=== PATIENT | female | born 1955 | race African-American/Black ===

== ENCOUNTER 2022-05-26 16:48 | Observation (INO) | payer MEDICARE, BC, OTHER, SELFPAY ==
[2022-05-26] VITALS (17 sets, daily range): BP systolic 121–197; BP diastolic 39–117; PULSE 64–81; RESP 14–22; TEMP 36.4–36.6; O2SAT 97–100; BMI 28.8
--- NOTE | ~2022-05-26 | CT_ITS ---
EXAMINATION: CT brain wo con DATE: 05/26/2022 21:14 INDICATION: fall 05/25 evening, pt denies hitting head . TECHNIQUE: Computed tomography (CT) of the head was performed without intravenous contrast. The mA wa s adjusted according to patient size. Iterative reconstruction technique was employed. The dose-lengt h product was 605.33 mGy-cm. COMPARISON: None. FINDINGS: No acute intracranial hemorrhage or extra-axial fluid collection. No hydrocephalus, mass, or herniation. No acute ischemic infarct. Unremarkable dural venous sinus attenuation. No acute osseous abnormality. Small osteoma or calcified meningioma projecting off the inner table of the left frontal bone. The aerated spaces are clear. Mild atrophy and chronic white matter change. Atherosclerotic intracranial calcification. Bilateral l ens replacements. IMPRESSION: No acute intracranial process. Reviewed, dictated and finalized at location K. ENGINEER
[2022-05-26] MEDS: GLUCOSE ORAL GEL 15 GM OF GLUCSE IN 37.5 GM TUBE (17:11)
--- NOTE | 2022-05-26 17:14 | PC.NURSE ---
During initial assessment the patient could only respond to questions with the remark 22
--- NOTE | 2022-05-26 17:34 | ECG_ITS ---
Measurements Intervals [place] Rate: 65 P: 102 VT: 141 QRS: 38 QRSD: 82 T: 31 QT: 465 QTc: 485 Interpretive Statements SINUS RHYTHM NONSPECIFIC ST & T-WAVE ABNORMALITY PROLONGED QT INTERVAL NO PREVIOUS ECG AVAILABLE FOR COMPARISON Electronically Signed On 05-27-2022 8:02:56 GLASS ROLLING MACHINE OPERATOR by Grzegorz Billings M.D.
[2022-05-26] MEDS: DEXTROSE 50% 25 GM/50 ML SYRINGE IV PUSH ×2 (17:52→22:51)
[2022-05-26] MEDS: SODIUM CHLORIDE 0.9% IV 1,000 ML 999 ML IV CONT (18:08)
--- NOTE | 2022-05-26 18:12 | ED.GENADULT ---
HPI - General Adult General Chief complaint: Weakness Stated complaint: weakness Time Seen by Provider: 05/26/22 16:56 History of Present Illness HPI narrative: 67-year-old female presenting to the emergency department for evaluation of altered mental status, lethargy and hypoglycemia. Family states that over the last 2 days patient has had decreased p.o. intake and increased lethargy. Family states patient did have a fall yesterday with no head injury but the patient was increasingly weak and they had difficulty getting her off of the floor. They state today patient continued to have worsening mental status. EMS was called and upon arrival to the scene patient was found to have a blood sugar of 44 but IV access was not established. They did treat the patient with glucagon. Related Data Home Medications Medication Instructions Recorded Confirmed aspirin 81 mg chewable tablet 05/26/22 atenolol 100 mg tablet mg 05/26/22 azelastine 137 mcg (0.1 %) nasal intranasal 05/26/22 spray aerosol buspirone 5 mg tablet mg 05/26/22 calcium citrate mg 05/26/22 docusate sodium 100 mg capsule mg PO 05/26/22 duloxetine 60 mg capsule,delayed mg PO 05/26/22 release ergocalciferol (vitamin D2) 1,250 05/26/22 mcg (50,000 unit) capsule ferrous sulfate 325 mg (65 mg mg 05/26/22 iron) tablet fluticasone propionate 50 intranasal 05/26/22 mcg/actuation nasal spray,suspension gabapentin 400 mg capsule mg 05/26/22 insulin aspar prot-insulin aspart subcut 05/26/22 100 unit/mL (70-30) subcutaneous pen (Novolog Mix 70-30FlexPen U-100) losartan 50 mg tablet mg 05/26/22 metformin 500 mg tablet,extended mg PO 05/26/22 release 24 hr montelukast 10 mg tablet mg 05/26/22 oxycodone-acetaminophen 10 mg-325 tablet 05/26/22 mg tablet pantoprazole 40 mg tablet,delayed mg PO 05/26/22 release potassium chloride 20 mEq meq PO 05/26/22 tablet,extended release sitagliptin phosphate 100 mg mg 05/26/22 tablet (Januvia) trazodone 100 mg tablet mg 05/26/22 vancomycin 125 mg capsule mg 05/26/22 Allergies Allergy/AdvReac Type Severity Reaction Status Date / Time Penicillins Allergy Hives Verified 05/26/22 19:30 Course Course Emergency Course: 67-year-old diabetic female presenting to the emergency department for altered mental status and hypoglycemia. IV access was not established by EMS. Upon arrival to the emergency department IV access was still difficult to initiate. For this reason an emergent central line in the right femoral was established. Patient and family were updated on the reason for getting the emergency central line. Once central line access was established patient was treated with fluids and IV dextrose. Patient's blood sugars did increase and then stabilized. Differential diagnosis for patient's symptoms did include primary hyperglycemia, underlying bacterial or viral infection. Patient did have a leukocytosis of 19.0. UA was concerning for urinary tract infection. Urine culture is pending. Patient was started on Levaquin due to other underlying medication allergies. Patient was negative for COVID RSV and influenza. Case was discussed with the hospitalist and patient was admitted to the IMU. Patient's vital signs were stable but due to her having the central line for IV access hospitalist felt that be more appropriate to have the patient admitted to the IMU. Patient and family were updated on the results of the work-up, and plan for admission. All question concerns were addressed. Cardio to the floor patient also had a negative head CT. Patient was recently diagnosed with C. difficile and is still undergoing treatment, patient did have diarrhea stool while in the emergency department Vital Signs Vital signs: Vital Signs Temperature 97.8 F 05/26/22 16:55 Pulse Rate 64 05/26/22 16:55 Respiratory Rate 16 05/26/22 16:55 Blood Pressure 197/117 H 05/26/22 16:55 Pulse O
[2022-05-26 18:22] LABS: Glucose Point of Care 241 mg/dl (65-105)
[2022-05-26 18:22] LABS: Glucose Point of Care 62 mg/dl (65-105)
[2022-05-26 18:22] LABS: Glucose Point of Care 74 mg/dl (65-105)
[2022-05-26 18:22] LABS: Glucose Point of Care 44 mg/dl (65-105)
--- NOTE | 2022-05-26 18:25 | PC.NURSE ---
Patient was given D50 and a blood glucose was reobtained of 241. Dr. Shah notified. Patient started to state she wanted to go home, she wanted to be left alone, and started to try to get out of bed.
[2022-05-26 18:26] LABS: Basophils Absolute Auto 0.1 K/mm3 (0.0-0.1); Basophils Percent Auto 0.3 % (0.2-1.2); Eosinophils Percent Auto 0.1 % (0-4.4); Hematocrit 34.9 % (37.0-47.0); Hemoglobin 11.3 g/dL (12.0-15.0); Immature Granulocyte Absolute 0.11 K/mm3 (0.00-0.031); Immature Granulocyte Percent A 0.6 % (0-0.5); Mean Corpuscular HGB Conc 32.4 g/dl (32-36); Mean Corpuscular Hemoglobin 28.2 pg (26-34); Mean Platelet Volume 10.3 fl (7.4-10.4); Monocytes Absolute Auto 0.6 K/mm3 (0.1-0.6); Monocytes Percent Auto 3.2 % (2.6-8.5); Neutrophils Absolute Auto 14.4 K/mm3 (1.3-6.7); Neutrophils Percent Auto 75.8 % (45.5-73.1); Platelet Count Result 236 k/mm3 (150-375); Red Blood Count 4.01 M/mm3 (4.2-5.4); Red Cell Distribution Width 15.4 % (11.5-14.5)
[2022-05-26 18:33] LABS: Alanine Aminotransferase 14 U/L (6-35); Albumin Level 2.9 g/dL (3.5-5.1); Alkaline Phosphatase 85 U/L (38-126); Anion Gap 0 mmol/L (8-16); Aspartate Amino Transferase 26 U/L (14-36); Bilirubin,Total 0.4 mg/dL (0.2-1.3); Blood Urea Nitrogen 8 mg/dL (7-17); Calcium 8.3 mg/dL (8.4-10.2); Carbon Dioxide 29 mmol/L (22-30); Chloride 100 mmol/L (98-107); Estimated Glomerular Filt Rate > 60; Glucose 308 mg/dL (65-110); INR 1.1; Lactic Acid Reflex 1.2 mmol/L (0.7-2.0); Potassium 3.5 mmol/L (3.4-5.0); Prothrombin Time 13.8 Seconds (11.1-14.7); Sodium 129 mmol/L (137-145)
[2022-05-26 18:33] LABS: Appearance Urine Slightly Cloudy (Clear); Bilirubin Urine Negative (Negative); Blood Urine Trace-intact (Negative); Color Urine Yellow (Yellow); Glucose Urine UA Trace mg/dL (Negative); Ketones Urine Negative (Negative); Leukocyte Esterase Ur 2+ LEU/UL (Negative); Nitrate Urine Positive (Negative); Protein Urine Negative (Negative); Specific Grav Ur 1.015 (1.001-1.035); Urobilinogen Urine 0.2 mg/dL (<2.0); pH Urine 7.5 (5.0-9.0)
[2022-05-26 18:38] LABS: Bacteria Urine Trace /hpf; Squamous Epithelial Cell Urine Rare /hpf (Few); WBC Urine 51-75 /hpf
[2022-05-26 18:53] LABS: Add Urine Microscopic? YES
[2022-05-26 19:06] LABS: Influenza A QL RT-PCR Negative (Negative); Influenza B QL RT-PCR Negative (Negative); RSV RNA, RT-PCR Negative (Negative); SARS-CoV-2 RNA PCR Negative
--- NOTE | 2022-05-26 19:18 | PC.NURSE ---
Report received from ERROL [place]. Assumed care of patient at this time.
[2022-05-26 19:26] LABS: Glucose Point of Care 162 mg/dl (65-105)
--- NOTE | 2022-05-26 19:26 | PC.NURSE ---
blood sugar 162 at 1925
--- NOTE | 2022-05-26 19:29 | PC.NURSE ---
Per patient and her son, patient also has cdiff.
[2022-05-26 20:15] LABS: Glucose Point of Care 119 mg/dl (65-105)
--- NOTE | 2022-05-26 21:01 | PM.IMHP ---
H&P: HPI History of Present Illness Date/Time: 05/26/22 21:02 Chief Complaint: Fall Narrative: This is a 67-year-old female with past medical history significant for type 2 diabetes mellitus, peripheral diabetic neuropathy, smoker, hypertension. Patient presents to the emergency room via EMS after family grew concerned due to patient's altered mental status fall a prior day had noticed progressive decline in overall functioning poor per orally intake and confusion. Patient was noted to have a blood glucose of 40 upon arrival of EMS and cristiano glucagon. Patient was unable to give any history due to delirium confusion kept repeating the word gabapentin here in emergency room patient was found to have a urinary tract infection, [place] [address] of the head without contrast was reported as: FINDINGS: No acute intracranial hemorrhage or extra-axial fluid collection. No hydrocephalus, mass, or herniation. No acute ischemic infarct. Unremarkable dural venous sinus attenuation. No acute osseous abnormality. Small osteoma or calcified meningioma projecting off the inner table of the left frontal bone. The? aerated spaces are clear. Mild atrophy and chronic white matter change. Atherosclerotic intracranial calcification. Bilateral lens replacements. IMPRESSION:? No acute intracranial process. Review of Systems Review of Systems: ROS unobtainable: Yes unobtainable due to mental status (Delirium, confusion) Meds Home Medications and Allergies Home Medications Medication Instructions Recorded Confirmed Type aspirin 81 mg chewable tablet 81 mg PO DAILY 05/26/22 05/26/22 History atenolol 100 mg tablet 100 mg PO DAILY 05/26/22 05/26/22 History azelastine 137 mcg (0.1 %) nasal 1 spray intranasal Q12H 05/26/22 05/26/22 History spray aerosol buspirone 5 mg tablet 5 mg PO HS 05/26/22 05/26/22 History calcium citrate 500 mg PO DAILY 05/26/22 05/26/22 History docusate sodium 100 mg capsule 100 mg PO Q12H PRN Constipation 05/26/22 05/26/22 History duloxetine 60 mg capsule,delayed 60 mg PO BID 05/26/22 05/26/22 History release ergocalciferol (vitamin D2) 1,250 1,250 mcg PO WEEKLY 05/26/22 05/26/22 History mcg (50,000 unit) capsule ferrous sulfate 325 mg (65 mg 325 mg PO BIDWM 05/26/22 05/26/22 History iron) tablet fluticasone propionate 50 2 spray intranasal DAILY PRN 05/26/22 05/26/22 History mcg/actuation nasal Allergy Symptoms spray,suspension furosemide 20 mg tablet 40 mg PO PRN swelling 05/26/22 05/26/22 History gabapentin 400 mg capsule 400 mg PO TID 05/26/22 05/26/22 History insulin aspar prot-insulin aspart subcut 05/26/22 History 100 unit/mL (70-30) subcutaneous pen (Novolog Mix 70-30FlexPen U-100) losartan 50 mg tablet 50 mg PO DAILY 05/26/22 05/26/22 History metformin 500 mg tablet,extended 1,000 mg PO QPM 05/26/22 05/26/22 History release 24 hr montelukast 10 mg tablet 10 mg PO DAILY 05/26/22 05/26/22 History nicotine 21 mg/24 hr daily 21 mg transdermal DAILY 05/26/22 05/26/22 History transdermal patch oxycodone-acetaminophen 10 mg-325 1 tablet PO Q8H PRN Pain (Scale 05/26/22 05/26/22 History mg tablet Score 4-6) pantoprazole 40 mg tablet,delayed 40 mg PO DAILY 05/26/22 05/26/22 History release potassium chloride 20 mEq 20 meq PO BID 05/26/22 05/26/22 History tablet,extended release sitagliptin phosphate 100 mg 100 mg PO DAILY 05/26/22 05/26/22 History tablet (Januvia) topiramate 25 mg tablet 50 mg PO Q12H 05/26/22 05/26/22 History trazodone 100 mg tablet 100 mg PO HS PRN Insomnia 05/26/22 05/26/22 History vancomycin 125 mg capsule 125 mg PO Q6H 05/26/22 05/26/22 History Allergies Allergy/AdvReac Type Severity Reaction Status Date / Time Penicillins Allergy Hives Verified 05/26/22 19:30 Vital Signs Vital Signs - 24 hr 05/26/22 16:55 05/26/22 17:14 05/26/22 18:32 Temperature 97.8 F Pulse Rate 64 69 81 Respiratory Rate 16 20 Blood Pressure 1
--- NOTE | 2022-05-26 21:04 | PC.NURSE ---
Patient taken to CT at this time.
--- NOTE | 2022-05-26 21:52 | PC.NURSE ---
Pt transferred to the floor via stretcher with her chart and belongings. Patient transferred while on tele.
[2022-05-26 22:38] LABS: Glucose Point of Care 51 mg/dl (65-105)
--- NOTE | 2022-05-26 23:26 | PC.NURSE ---
Called phone number for spouse Chalo and left a message to return call for admission information.
--- NOTE | 2022-05-26 23:30 | PC.NURSE ---
This patient, Shanita Moreno, was admitted to IMU Room 202-01 05/26/22 at 2200. Patient/family unable to be oriented to hospital policies and general routines including ID bracelet, bed and alarms, visiting hours, pain management, procedures, bathroom and other care routines, personal items, smoking policy, room service/diet, and visiting hours. Pt is confused and family is not present Patient encouraged to report perceived risks to care and to ask questions if they do not understand what they are told or what they should do.
[2022-05-27] VITALS (11 sets, daily range): BP systolic 148–184; BP diastolic 65–92; PULSE 61–84; RESP 16–20; TEMP 36.1–36.9; O2SAT 94–100
[2022-05-27 00:18] LABS: Glucose Point of Care 159 mg/dl (65-105)
[2022-05-27 01:16] LABS: Glucose Point of Care 79 mg/dl (65-105)
[2022-05-27 05:16] LABS: Glucose Point of Care 112 mg/dl (65-105)
[2022-05-27 05:54] LABS: Toxigenic C. Diff NEGATIVE (NEGATIVE)
[2022-05-27] MEDS: CENTRAL LINE FLUSH 10 ML IV PUSH (06:25)
[2022-05-27 06:59] LABS: Glucose Point of Care 91 mg/dl (65-105)
[2022-05-27] MEDS: ASPIRIN 81 MG CHEWABLE TABLET PO (08:25)
[2022-05-27] MEDS: FERROUS SULFATE 324 MG TABLET PO (08:25)
[2022-05-27] MEDS: LOSARTAN POTASSIUM 50 MG TABLET PO (08:25)
[2022-05-27] MEDS: PANTOPRAZOLE 40 MG TABLET PO (08:25)
[2022-05-27] MEDS: GABAPENTIN 400 MG CAPSULE PO (08:25)
[2022-05-27] MEDS: MONTELUKAST SODIUM 10 MG TABLET PO (08:25)
[2022-05-27] MEDS: NICOTINE (*PBKC) 21 MG PATCH 1 PATCH TRANSDERM (08:26)
[2022-05-27] MEDS: atenoloL 50 MG TABLET 100 MG PO (08:29)
[2022-05-27 09:03] LABS: Glucose Point of Care 93 mg/dl (65-105)
[2022-05-27 09:06] LABS: Basophils Absolute Auto 0.1 K/mm3 (0.0-0.1); Basophils Percent Auto 0.7 % (0.2-1.2); Eosinophils Absolute Auto 0.1 K/mm3 (0-0.3); Eosinophils Percent Auto 0.4 % (0-4.4); Hematocrit 35.2 % (37.0-47.0); Hemoglobin 11.4 g/dL (12.0-15.0); Immature Granulocyte Absolute 0.05 K/mm3 (0.00-0.031); Immature Granulocyte Percent A 0.4 % (0-0.5); Lymphocytes Absolute Auto 3.65 K/mm3 (0.9-3.2); Lymphocytes Percent Auto 27.5 % (18.3-44.2); Mean Corpuscular HGB Conc 32.4 g/dl (32-36); Mean Corpuscular Hemoglobin 27.8 pg (26-34); Mean Corpuscular Volume 85.9 fl (80-100); Mean Platelet Volume 9.4 fl (7.4-10.4); Monocytes Absolute Auto 0.8 K/mm3 (0.1-0.6); Monocytes Percent Auto 6.1 % (2.6-8.5); Neutrophils Absolute Auto 8.6 K/mm3 (1.3-6.7); Neutrophils Percent Auto 64.9 % (45.5-73.1); Platelet Count Result 261 k/mm3 (150-375); Red Cell Distribution Width 15.4 % (11.5-14.5); White Blood Count 13.3 K/mm3 (4.5-10.0)
[2022-05-27 09:16] LABS: Alanine Aminotransferase 16 U/L (6-35); Albumin Level 3.3 g/dL (3.5-5.1); Alkaline Phosphatase 91 U/L (38-126); Anion Gap 3 mmol/L (8-16); Aspartate Amino Transferase 27 U/L (14-36); Bilirubin,Total 0.7 mg/dL (0.2-1.3); Blood Urea Nitrogen 4 mg/dL (7-17); Calcium 8.6 mg/dL (8.4-10.2); Carbon Dioxide 28 mmol/L (22-30); Chloride 101 mmol/L (98-107); Estimated CRCL calculation 74 ml/min; Estimated Glomerular Filt Rate > 60; Glucose 110 mg/dL (65-110); Potassium 3.3 mmol/L (3.4-5.0); Sodium 132 mmol/L (137-145)
--- NOTE | 2022-05-27 12:28 | PM.DS ---
DS: Admitting Diagnosis Discharge Date 05/27/2022 Admitting Diagnosis Altered mental status DS: Discharge Diagnosis Discharge Diagnosis (1) Acute UTI: Code(s): N39.0 - Urinary tract infection, site not specified Status: Acute Assessment and Plan: Admit to regular medical floor Patient started on levofloxacin Await cultures Supportive care (2) Hypoglycemia: Code(s): E16.2 - Hypoglycemia, unspecified Status: Acute Assessment and Plan: Holding insulin Holding Januvia Holding metformin Continue to monitor Likely secondary to poor per orally intake Encourage oral intake (3) AMS (altered mental status): Qualifiers: Altered mental status type: somnolence Qualified Code(s): R40.0 - Somnolence Code(s): R41.82 - Altered mental status, unspecified Status: Acute Assessment and Plan: Likely endocrine or metabolic encephalopathy Supportive care CT of the head reviewed (4) C. difficile colitis: Code(s): A04.72 - Enterocolitis due to Clostridium difficile, not specified as recurrent Status: Acute Assessment and Plan: Continue vanc p.o. DS: Summary Hospital Course Hospital Course: 67-year-old female with past medical history significant for type 2 diabetes mellitus, peripheral diabetic neuropathy, smoker, hypertension.? Patient presents to the emergency room via EMS after family grew concerned due to patient's altered mental status fall a prior day had noticed progressive decline in overall functioning poor per orally intake and confusion.? Patient was noted to have a blood glucose of 40 upon arrival of EMS and cristiano glucagon.? Patient was unable to give any history due to delirium confusion kept repeating the word gabapentin here in emergency room patient was found to have a urinary tract infection, [place] [address]. Patient was admitted and started antibiotics, all symptoms resolved. She was discharged in stable condition with close outpatient follow-up of her urine culture on antibiotics. Time Spent with Patient Time attestation: Total time spent providing and/or coordinating discharge services: Exam Narrative: General: No acute distress, alert and oriented per baseline HEENT: Atraumatic, normocephalic, mucous membranes moist CV: Regular rate and rhythm, S1, S2 Lungs: Clear to auscultation bilaterally, no rales or crackles noted, no wheezes, good air entry Abdomen: Soft, nontender, nondistended Extremities: Normal to inspection Skin: No rashes noted, no lesions or wounds seen Psych: Euthymic, normal affect DS: Data Data Completed and Pending Labs on day of discharge: Labs from last 24 hours 05/27/22 05/27/22 05/27/22 08:58 08:58 08:26 WBC 13.3 H RBC 4.10 L Hgb 11.4 L Hct 35.2 L MCV 85.9 MCH 27.8 MCHC 32.4 RDW 15.4 H Plt Count 261 MPV 9.4 Immature Gran % (Auto) 0.4 Neut % (Auto) 64.9 Lymph % (Auto) 27.5 [place] % (Auto) 6.1 Eos % (Auto) 0.4 Baso % (Auto) 0.7 Lymph # (Auto) 3.65 H [place] # (Auto) 0.8 H Eos # (Auto) 0.1 Baso # (Auto) 0.1 Abs Immat Gran (auto) 0.05 H Absolute Neuts (auto) 8.6 H Absolute Nucleated RBC 0.0 Nucleated RBC % 0.0 PT INR APTT Sodium 132 L Potassium 3.3 L Chloride 101 Carbon Dioxide 28 Anion Gap 3 L BUN 4 L Creatinine 0.60 L Estim Creat Clear Calc 74 Estimated GFR > 60 Glucose 110 POC Capillary Glucose 93 Lactic Acid Calcium 8.6 Total Bilirubin 0.7 AST 27 ALT 16 Alkaline Phosphatase 91 Total Protein 7.0 Albumin 3.3 L Urine Color Urine Appearance Urine pH Ur Specific [place] Urine Protein Urine Glucose (UA) Urine Ketones Ur Blood (Man) Urine Nitrate Urine Bilirubin Urine Urobilinogen Leukocyte Esterase Rfl Urine RBC Urine WBC Ur Squamous Epith Cells Urine Bacteria C. di
[2022-05-27 14:10] LABS: Glucose Point of Care 124 mg/dl (65-105)
== END 2022-05-27 15:30 | disposition home health service (06) ==
LOC: ANHED 19:53 → ANHIMU 20:28
PROVIDERS: Admitting Provider Internal Medicine; Emergency Provider Emergency Medicine; Visit Provider Student in an Organized Health Care Education/Training Program
DX: N39.0 Urinary tract infection, site not specified (principal); B96.89 Other specified bacterial agents as the cause of diseases classified elsewhere; E11.649 Type 2 diabetes mellitus with hypoglycemia without coma; R41.82 Altered mental status, unspecified; A04.72 Enterocolitis due to Clostridium difficile, not specified as recurrent; R53.1 Weakness; R53.83 Other fatigue; W19.XXXA Unspecified fall, initial encounter; E11.42 Type 2 diabetes mellitus with diabetic polyneuropathy; Z20.822 Contact with and (suspected) exposure to COVID-19; I10 Essential (primary) hypertension; R94.31 Abnormal electrocardiogram [ECG] [EKG]; R60.9 Edema, unspecified; G47.00 Insomnia, unspecified; D72.829 Elevated white blood cell count, unspecified; F17.210 Nicotine dependence, cigarettes, uncomplicated; Z79.82 Long term (current) use of aspirin; Z79.51 Long term (current) use of inhaled steroids; Z79.1 Long term (current) use of non-steroidal anti-inflammatories (NSAID); Z79.84 Long term (current) use of oral hypoglycemic drugs; Z79.891 Long term (current) use of opiate analgesic; Z79.899 Other long term (current) drug therapy
CPT/HCPCS: 36415; 36556; 51701; 70450; 80053; 81001; 82948; 83605; 85025; 85610; 85730; 87040; 87045; 87077; 87086; 87186; 87427; 87493; 87637; 89055; 93005; 96365; 96366; 96375; 96376; 97161; 97165; 99291; A9270; C1751; G0378; J1956; J7030